=== PATIENT | male | born 1995 | race African-American/Black ===

== ENCOUNTER 2017-03-28 12:52 | Emergency (ER) | payer OTHER ==
[2017-03-28] MEDS: METOCLOPRAMIDE INJ 10MG/2ML VIAL (J2765) IV (14:00)
[2017-03-28] MEDS: KETOROLAC 30 MG/ML VIAL (J1885) IV (14:30)
== END 2017-03-28 15:17 | disposition home or self-care (01) ==
LOC: M ED 12:52
DX: R51 Headache (principal)
CPT/HCPCS: J1885

== ENCOUNTER 2017-04-28 18:12 | Emergency (ER) | payer OTHER ==
[2017-04-28] MEDS ORDERED: predniSONE 20 MG TAB As Ordered (19:13)
== END 2017-04-28 20:23 | disposition home or self-care (01) ==
LOC: M ED 18:12
DX: L42 Pityriasis rosea (principal); F17.200 Nicotine dependence, unspecified, uncomplicated
CPT/HCPCS: 99282

== ENCOUNTER 2018-04-18 06:54 | Emergency (ER) | payer OTHER ==
[~2018-04-18] VITALS: Ht 165.1 cm; Wt 58.6 kg
[~2018-04-18 06:54] MED LIST: KETO10TAB PO; PRED10TA2 PO; REGL10TA6 PO; ZYRT10CA5 PO
[2018-04-18 06:55] VITALS: BP 126/63
[2018-04-18] MEDS ORDERED: MAGICMW SSP (07:21)
== END 2018-04-18 07:46 | disposition home or self-care (01) ==
LOC: M ED 06:54
DX: J02.8 Acute pharyngitis due to other specified organisms (principal)

== ENCOUNTER 2018-06-01 11:56 | Emergency (ER) | payer OTHER ==
[~2018-06-01] VITALS: Ht 165.1 cm; Wt 50.9 kg
[~2018-06-01 11:56] MED LIST changes: +MAGICMW SSP
[2018-06-01] MEDS ORDERED: KETOROLAC 60 MG/2 ML VIAL (J1885) IM ONE (13:15)
[2018-06-01] MEDS ORDERED: ONDANSETRON 4 MG ORAL DISINTEGRATING TAB (Q0162 PER 1MG) PO ONE (13:15)
[2018-06-01] MEDS ORDERED: ACETAMINOPHEN 325 MG TAB PO ONE (13:15)
[2018-06-01 14:16] VITALS: BP 119/58
== END 2018-06-01 14:29 | disposition home or self-care (01) ==
LOC: M ED 11:56
DX: R51 Headache (principal)
CPT/HCPCS: 96372; 99283; J1885; Q0162

== ENCOUNTER 2018-07-31 08:43 | Emergency (ER) | payer OTHER ==
[~2018-07-31] VITALS: Ht 165.1 cm; Wt 59.5 kg
[2018-07-31] MEDS ORDERED: CLAR10CA3 PO (08:53)
[2018-07-31] MEDS ORDERED: ROBI1LIQ9 PO (08:53)
--- NOTE | 2018-07-31 10:05 | REP ---
Clinical: Shortness of breath and cough. Technique: PA and lateral. Comparison: None. Findings: Mediastinum and cardiac silhouette normal. Lung ace without focal consolidation, effusion, or pneumothorax. Skeletal structures intact. Impression: No focal consolidation. Electronically Signed by Kyrie Padilla MD 07/31/2018 09:57 A
[2018-07-31 10:17] VITALS: BP 128/58
== END 2018-07-31 10:47 | disposition home or self-care (01) ==
LOC: M ED 08:43
DX: J20.8 Acute bronchitis due to other specified organisms (principal); Z79.899 Other long term (current) drug therapy